=== PATIENT | female | born 1980 | race Caucasian/White ===

== ENCOUNTER 2017-12-18 13:09 | Emergency (ER) | payer OTHER, BC ==
[2017-12-18] MEDS ORDERED: Ketorolac 60 MG/2 ML SDV IM ONE (13:42)
--- NOTE | 2017-12-18 13:44 | EDM.PDOC ---
ED HPI GENERAL MEDICAL PROBLEM - General Chief Complaint: Back Pain or Injury Stated Complaint: LOWER BACK PAIN Time Seen by Provider: 12/18/17 13:44 Source of Information: Reports: Patient - History of Present Illness INITIAL COMMENTS - FREE TEXT/NARRATIVE: HISTORY AND PHYSICAL: History of present illness: Patient presents with low back pain 6 out of 10 radiating down the left leg for approximately 20 minutes, radiation has resolved now complains of pain to the left paraspinous muscles as well as centrally in no distress but certainly uncomfortable with sitting and standing patient is able to bend at the waist with her hands slightly above her knees to help support Patient was working intermittently, 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 Past medical history: As per history of present illness and as reviewed below otherwise noncontributory. Surgical history: As per history of present illness and as reviewed below otherwise noncontributory. Social history: No reported history of drug or alcohol abuse. Family history: As per history of present illness and as reviewed below otherwise noncontributory. Physical exam: HEENT: Atraumatic, normocephalic, pupils reactive, negative for conjunctival pallor or scleral icterus, mucous membranes moist, throat clear, neck supple, nontender, trachea midline. Lungs: Clear to auscultation, breath sounds equal bilaterally, chest nontender. Heart: S1S2, regular, negative for clicks, rubs, or JVD. Abdomen: Soft, nondistended, nontender. Negative for masses or hepatosplenomegaly. Negative for costovertebral tenderness. Pelvis: Stable nontender. Genitourinary: Deferred. Rectal: Deferred. Extremities: Atraumatic, negative for cords or calf pain. Neurovascular unremarkable. Neuro: Awake, alert, oriented. Cranial nerves II through XII unremarkable. Cerebellum unremarkable. Motor and sensory unremarkable throughout. Exam nonfocal. Footdrop or saddle anesthesia Diagnostics: []Lumbar spine Therapeutics: []Toradol 60 IM [place] Flexeril Rest ice Impression: Paraspinous muscle spasm lumbar []Low back pain Definitive disposition and diagnosis as appropriate pending reevaluation and review of above. - Related Data Allergies Allergy/AdvReac Type Severity Reaction Status Date / Time No Known Allergies Allergy Verified 05/17/17 14:39 MDT Home Meds: Home Meds Ondansetron [Zofran ODT] 4 mg PO Q6H PRN #15 tab.dis 05/16/17 [Rx] oxyCODONE HCl/Acetaminophen [Percocet 5-325 mg Tablet] 1 - 2 each PO Q6H PRN [History] Past Medical History HEENT History: Reports: None Cardiovascular History: Reports: None Respiratory History: Reports: None Gastrointestinal History: Reports: None Genitourinary History: Reports: Renal Calculus [employer] History: Reports: Musculoskeletal History: Reports: None Neurological History: Reports: Migraines Other Neuro History: has very frequent migranes if not taking medication Psychiatric History: Reports: Anxiety Endocrine/Metabolic History: Reports: Obesity/BMI 30+ Other Endocrine/Metabolic History: Last TSH check last year. Hematologic History: Reports: None Immunologic History: Reports: None Oncologic (Cancer) History: Reports: None Dermatologic History: Reports: None - Infectious Disease History Infectious Disease History: Reports: Chicken Pox - Past Surgical History Head Surgeries/Procedures: Reports: None HEENT Surgical History: Reports: Oral Surgery, Other (See Below) Musculoskeletal Surgical History: Reports: Other (See Below) Social & Family History - Family History Family Medical History: Noncontributory - Tobacco Use Smoking Status *Q: Current Every Day Smoker Years of Tobacco use: 15 Packs/Tins Daily: 0.5 Used Tobacco, but Quit: No Second Hand Smoke Exposure: Yes - Caffeine Use Caffeine Use: Reports: None - Recreational Drug Use Recreational Drug Use: No Drug Use in Last 12 Months: No ED ROS GENERAL - Review of Systems Review Of Systems: ROS reveals no pertinent complaints other than HPI. ED EXAM, GENERAL - Physical Exam Exam: See Below Course - Orders/Labs/Meds Meds: Medications Discontinued Medications Generic Name Dose Route Start Last Admin Trade Name Freq PRN Reason Stop Dose Admin Ketorolac Tromethamine 60 mg 12/18/17 13:42 12/18/17 13:53 Toradol IM 12/18/17 13:43 60 mg ONETIME ONE Administration Departure - Departure Time of Disposition: 14:33 Disposition: Home, Self-Care 01 Condition: Good Clinical Impression: Spasm of lumbar paraspinous muscle, Low back pain - Discharge Information Referrals: PCP,None [Primary Care Provider] - Forms: ED Department Discharge Additional Instructions: Medication as prescribed no need for ibuprofen or Tylenol with this medication No alcohol with the muscle relaxant Flexeril, no operation of heavy equipment or driving Ice 20 minute intervals 3 times daily as needed Return if symptoms persist or worsen Follow-up with primary care in 2 weeks [facility] [address] [place] [id number] The following information is given to patients seen in the emergency department who are being discharged to home. This information is to outline your options for follow-up care. We provide all patients seen in our emergency department with a follow-up referral. The need for follow-up, as well as the timing and circumstances, are variable depending upon the specifics of your emergency department visit. If you don't have a primary care physician on staff, we will provide you with a referral. We always advise you to contact your personal physician following an emergency department visit to inform them of the circumstance of the visit and for follow-up with them and/or the need for any referrals to a consulting specialist. The emergency department will also refer you to a specialist when appropriate. This referral assures that you have the opportunity for follow-up care with a specialist. All of these measure are taken in an effort to provide you with optimal care, which includes your follow-up. Under all circumstances we always encourage you to contact your private physician who remains a resource for coordinating your care. When calling for follow-up care, please make the office aware that this follow-up is from your recent emergency room visit. If for any reason you are refused follow-up, please contact the [facility] emergency department at and asked to speak to the emergency department charge nurse.
--- NOTE | 2017-12-18 14:27 | CR ---
EXAMINATION: Lumbar spine HISTORY: Pain COMPARISON: None TECHNIQUE: 3 views FINDINGS: Mild levoscoliosis of the lumbar spine is noted. The vertebral body heights and disc spaces appear maintained. Minimal marginal osteophytes. SI joints are symmetric. Bone mineralization is nor mal. IMPRESSION: 1. Mild degenerative changes without acute findings.
[2017-12-18 15:07] VITALS: BP 109/71
== END 2017-12-18 15:13 | disposition home or self-care (01) ==
LOC: MW.ED 13:09
DX: M62.830 Muscle spasm of back (principal); F17.210 Nicotine dependence, cigarettes, uncomplicated
CPT/HCPCS: 72100; 96372; 99283; J1885

== ENCOUNTER 2019-08-29 11:13 | Emergency (ER) | payer BC ==
--- NOTE | 2019-08-29 11:33 | EDM.PDOC ---
ED HPI GENERAL MEDICAL PROBLEM - General Chief Complaint: Lower Extremity Injury/Pain Stated Complaint: SAVAGE GTZ Time Seen by Provider: 08/29/19 11:20 Source of Information: Reports: Patient History Limitations: Reports: No Limitations - History of Present Illness INITIAL COMMENTS - FREE TEXT/NARRATIVE: History of present illness: []Patient was up and down a ladder several times yesterday and in the middle of the night started having right-sided ankle pain behind the medial malleolus. She does not have any swelling and does not recall any incident where she fell or twisted her foot or ankle. Review of systems: As per history of present illness and below otherwise all systems reviewed and negative. Past medical history: As per history of present illness and as reviewed below otherwise noncontributory. Surgical history: As per history of present illness and as reviewed below otherwise noncontributory. Social history: No reported history of drug or alcohol abuse. Family history: As per history of present illness and as reviewed below otherwise noncontributory. Physical exam: General: Well developed, well nourished in NAD HEENT: Atraumatic, normocephalic, pupils reactive, negative for conjunctival pallor or scleral icterus, mucous membranes moist, throat clear, neck supple, nontender, trachea midline. Lungs: Clear to auscultation, breath sounds equal bilaterally, chest nontender. Heart: S1S2, regular, negative for clicks, rubs, or JVD. Abdomen: NABS, Soft, nondistended, nontender. Negative for masses or hepatosplenomegaly. Negative for costovertebral tenderness. Pelvis: Stable nontender. Genitourinary: Deferred. Rectal: Deferred. Extremities: Atraumatic, no visible signs of external trauma or swelling, patient has tenderness posterior to the medial malleolus of the right ankle, no bony tenderness, tenderness with section and extension of her ankle. distal pulses are palpable moves toes and has brisk capillary refill negative for cords or calf pain. Neurovascular unremarkable. Neuro: Awake, alert, oriented. Cranial nerves II through XII unremarkable. Cerebellum unremarkable. Motor and sensory unremarkable throughout. Exam nonfocal. Skin:warm and dry Diagnostics: None Therapeutics: Air splint ED Course: Table Impression: Tendinitis right ankle Prescriptions: Diclofenac Plan: Elevate ankle as much as possible, Take meds as directed, follow up with your primary care physician, return to ER if symptoms worsen or change. Definitive disposition and diagnosis as appropriate pending reevaluation and review of above. RIGHT ANKLE Pain Score (Numeric/FACES): 7 - Related Data Allergies Allergy/AdvReac Type Severity Reaction Status Date / Time No Known Allergies Allergy Verified 08/29/19 11:25 Home Meds: Home Meds Diclofenac Sodium [Voltaren] 75 mg PO BIDMEALS PRN #20 tab.cr 08/29/19 [Rx] Past Medical History HEENT History: Reports: None Cardiovascular History: Reports: None Respiratory History: Reports: None Gastrointestinal History: Reports: None Genitourinary History: Reports: Renal Calculus [employer] P[employer]ING TECH History: Reports: Musculoskeletal History: Reports: None Neurological History: Reports: Migraines Other Neuro History: has very frequent migranes if not taking medication Psychiatric History: Reports: Anxiety Endocrine/Metabolic History: Reports: Obesity/BMI 30+ Other Endocrine/Metabolic History: Last TSH check last year. Hematologic History: Reports: None Immunologic History: Reports: None Oncologic (Cancer) History: Reports: None Dermatologic History: Reports: None - Infectious Disease History Infectious Disease History: Reports: Chicken Pox - Past Surgical History Head Surgeries/Procedures: Reports: None HEENT Surgical History: Reports: Oral Surgery, Other (See Below) Other HEENT Surgeries/Procedures: ear sx Female Surgical History: Reports: Hysterectomy Musculoskeletal Surgical History: Reports: Other (See Below) Social & Family History - Family History Family Medical History: Noncontributory - Tobacco Use Smoking Status *Q: Current Every Day Smoker Years of Tobacco use: 15 Packs/Tins Daily: 0.5 - Caffeine Use Caffeine Use: Reports: None - Recreational Drug Use Recreational Drug Use: No Review of Systems - Review of Systems Review Of Systems: See Below ED EXAM, GENERAL - Physical Exam Exam: See Below Course - Vital Signs Last Recorded V/S: Last Vital Signs Temp 96.9 F 08/29/19 11:24 Pulse 82 08/29/19 11:24 Resp BP 121/76 08/29/19 11:24 Pulse Ox 95 08/29/19 11:24 Departure - Departure Time of Disposition: 11:32 Disposition: Home, Self-Care 01 Condition: Good Clinical Impression: Right ankle tendonitis - Discharge Information *PRESCRIPTION DRUG MONITORING PROGRAM REVIEWED*: No *COPY OF PRESCRIPTION DRUG MONITORING REPORT IN PATIENT MICKEY: No Prescriptions: Diclofenac Sodium [Voltaren] 75 mg PO BIDMEALS PRN #20 tab.cr PRN Reason: Pain Referrals: PCP,None [Primary Care Provider] - Additional Instructions: The following information is given to patients seen in the emergency department who are being discharged to home. This information is to outline your options for follow-up care. We provide all patients seen in our emergency department with a follow-up referral. The need for follow-up, as well as the timing and circumstances, are variable depending upon the specifics of your emergency department visit. If you don't have a primary care physician on staff, we will provide you with a referral. We always advise you to contact your personal physician following an emergency department visit to inform them of the circumstance of the visit and for follow-up with them and/or the need for any referrals to a consulting specialist. The emergency department will also refer you to a specialist when appropriate. This referral assures that you have the opportunity for follow-up care with a specialist. All of these measure are taken in an effort to provide you with optimal care, which includes your follow-up. Under all circumstances we always encourage you to contact your private physician who remains a resource for coordinating your care. When calling for follow-up care, please make the office aware that this follow-up is from your recent emergency room visit. If for any reason you are refused follow-up, please contact the [facility] Emergency Department at and asked to speak to the emergency department charge nurse. Use ice as much as possible, wear splint for comfort, Take meds as directed, follow up with your primary care physician, return to ER if symptoms worsen or change. [facility] [address] [place] [id number]
[2019-08-29 11:57] VITALS: BP 109/71; PULSE 86
== END 2019-08-29 11:56 | disposition home or self-care (01) ==
LOC: MW.ED 11:13
DX: M77.51 Other enthesopathy of right foot and ankle (principal); F17.210 Nicotine dependence, cigarettes, uncomplicated; E66.9 Obesity, unspecified; Z68.32 Body mass index [BMI] 32.0-32.9, adult
CPT/HCPCS: 99283

== ENCOUNTER 2020-10-29 15:00 | Emergency (ER) | payer BC ==
[2020-10-29] MEDS ORDERED: Sodium Chloride 0.9% 10 ML Syringe FLUSH PRN (15:06)
[2020-10-29] MEDS ORDERED: Sodium Chloride 0.9% 2.5 ML Syringe FLUSH PRN (15:06)
[2020-10-29] MEDS ORDERED: Sodium Chloride 0.9% 10 ML SDV IV PRN (15:06)
--- NOTE | 2020-10-29 15:14 | EDM.PDOC ---
ED HPI GENERAL MEDICAL PROBLEM - General Stated Complaint: NUMB FACE Time Seen by Provider: 10/29/20 15:10 Source of Information: Reports: Patient History Limitations: Reports: No Limitations - History of Present Illness INITIAL COMMENTS - FREE TEXT/NARRATIVE: 40-year-old female with history of migraine presents with numbness and tingling to the left face and left upper extremity and blurry vision, last known well = 1 PM today. She started having the same symptoms last night at 8 PM and she went to sleep and woke up at 6 AM asymptomatic, she then went to work at [employer] and started feeling the same symptoms again 2 hours ago at 1 PM. She feels nauseous. She denies headache, abdominal pain, fever, chills, chest pain, shortness of breath, vomiting. She states that she has never had migraines that feel like this because she always has a headache with migraines. She denies having a headache today. ROS: A 10-point review of systems, other than pertinent positives and negatives as stated per HPI, is otherwise negative Past medical history: No additional pertinent history Past Surgical history: No additional pertinent history Social history: No additional pertinent history Family history: No additional pertinent history PHYSICAL EXAM General: AOx4, GCS = 15, No distress HEENT: dry mucous membrane Neck: supple, no meningismus, no Kernig or Brudzinski Cardiac: S1S2 RRR Respiratory: CTAB, no crackles or rales, no wheezing Abdomen: Soft, nontender, no rebound or guarding, nondistended, no pulsatile mass. Back: nontender Musculoskeletal: NVI distally, no deformity Neuro: NIHSS = 1, hypoesthesia to the left face and left upper extremity. 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 Hematologic History: Reports: None Immunologic History: Reports: None Oncologic (Cancer) History: Reports: None Dermatologic History: Reports: None - Infectious Disease History Infectious Disease History: Reports: Chicken Pox - Past Surgical History Head Surgeries/Procedures: Reports: None HEENT Surgical History: Reports: Oral Surgery, Other (See Below) Other HEENT Surgeries/Procedures: ear sx Female Surgical History: Reports: Hysterectomy Musculoskeletal Surgical History: Reports: Other (See Below) Social & Family History - Family History Family Medical History: No Pertinent Family History - Caffeine Use Caffeine Use: Reports: None ED ROS GENERAL - Review of Systems Review Of Systems: See Below (see dictation) ED EXAM, NEURO - Physical Exam Exam: See Below (see dictation) #1 Interpretation EKG Interpretation Comments: Heart rate = 49 bpm, sinus bradycardia, normal QRS interval, no STEMI. EKG and rhythm strip interpreted by me at 5430 Course - Vital Signs Last Recorded V/S: Last Vital Signs Temp 97.0 F 10/29/20 16:57 Pulse 83 10/29/20 16:57 Resp 16 10/29/20 16:57 BP 128/72 10/29/20 16:57 Pulse Ox 96 10/29/20 16:57 - Orders/Labs/Meds Orders: Active Orders 24 hr Category Date Time Status Assess Neurological Status [RC] CONTINUOUS Care 10/29/20 15:06 Active Blood Glucose Check, Bedside [RC] STAT Care 10/29/20 15:06 Active Cardiac Monitoring [RC] CONTINUOUS Care 10/29/20 15:06 Active Communication Order [RC] STAT Care 10/29/20 15:06 Active EKG 12 Lead [EKG Documentation Completion] [RC] STAT Care 10/29/20 16:35 Active Height and Weight [RC] UPON Care 10/29/20 15:06 Active NIH Stroke Scale [RC] Q15M Care 10/29/20 15:06 Active NIH Stroke Scale [RC] STAT Care 10/29/20 15:06 Active Nursing Bedside Swallow Screen [RC] STAT Care 10/29/20 15:06 Active Oxygen Therapy, ED [RC] ASDIRECTED Care 10/29/20 15:06 Active Vital Signs [RC] Q15M Care 10/29/20 15:06 Active Sodium Chloride 0.9% [Normal Saline] Med 10/29/20 15:06 Active 10 ml IV ASDIRECTED PRN Sodium Chloride 0.9% [Normal Saline] 500 ml Med 10/29/20 15:15 Active IV BOLUS Sodium Chloride 0.9% [Saline Flush] Med 10/29/20 15:06 Active 10 ml FLUSH ASDIRECTED PRN Sodium Chloride 0.9% [Saline Flush] Med 10/29/20 15:06 Active 2.5 ml FLUSH ASDIRECTED PRN Blood Pressure Mgmt:Acute Stroke [OM.PC] Urgent Oth 10/29/20 15:06 Ordered Peripheral IV Insertion Adult [OM.PC] Stat Oth 10/29/20 15:06 Ordered Peripheral IV Insertion Adult [OM.PC] Stat Oth 10/29/20 15:06 Ordered Resuscitation Status Stat Resus Stat 10/29/20 15:06 Ordered Medication Orders Sodium Chloride (Normal Saline) 500 mls @ 999 mls/hr IV BOLUS REMBERTO Last Admin: 10/29/20 16:02 Dose: 999 mls/hr Documented by: SLAT[place] Sodium Chloride (Saline Flush) 10 ml FLUSH ASDIRECTED PRN PRN Reason: Keep Vein Open Last Admin: 10/29/20 16:05 Dose: 10 ml Documented by: [place] Sodium Chloride (Saline Flush) 2.5 ml FLUSH ASDIRECTED PRN PRN Reason: Keep Vein Open Last Admin: 10/29/20 16:04 Dose: 2.5 ml Documented by: [place] Sodium Chloride (Normal Saline) 10 ml IV ASDIRECTED PRN PRN Reason: IV Use Labs: Laboratory Tests 10/29/20 10/29/20 10/29/20 Range/Units 15:06 15:06 15:06 WBC 7.71 (4.0-11.0) K/uL RBC 4.25 L (4.30-5.90) M/uL Hgb 13.3 (12.0-16.0) g/dL Hct 40.7 (36.0-46.0) % MCV 95.8 (80.0-98.0) fL MCH 31.3 (27.0-32.0) pg MCHC 32.7 (31.0-37.0) g/dL RDW Std Deviation 44.1 (28.0-62.0) fl RDW Coeff of Ivette 13 (11.0-15.0) % Plt Count 333 (150-400) K/uL MPV 9.60 (7.40-12.00) fL Neut % (Auto) 63.0 (48.0-80.0) % Lymph % (Auto) 27.1 (16.0-40.0) % Ocean % (Auto) 7.7 (0.0-15.0) % Eos % (Auto) 1.8 (0.0-7.0) % Baso % (Auto) 0.4 (0.0-1.5) % Neut # (Auto) 4.9 (1.4-5.7) K/uL Lymph # (Auto) 2.1 (0.6-2.4) K/uL Ocean # (Auto) 0.6 (0.0-0.8) K/uL Eos # (Auto) 0.1 (0.0-0.7) K/uL Baso # (Auto) 0.0 (0.0-0.1) K/uL Nucleated RBC % 0.0 /100WBC Nucleated RBCs # 0 K/uL INR 0.99 APTT 25.7 (18.6-31.3) SEC Sodium 141 (136-145) mmol/L Potassium 3.7 (3.5-5.1) mmol/L Chloride 107 (98-107) mmol/L Carbon Dioxide 22.2 (21.0-32.0) mmol/L BUN 9 (7.0-18.0) mg/dL Creatinine 0.8 (0.6-1.0) mg/dL Est Cr Clr Drug Dosing TNP Estimated GFR (MDRD) > 60.0 ml/min Glucose 91 (74-106) mg/dL Calcium 8.7 (8.5-10.1) mg/dL Total Bilirubin 0.7 (0.2-1.0) mg/dL AST 12 L (15-37) IU/L ALT 18 (14-63) IU/L Alkaline Phosphatase 73 (46-116) U/L Troponin I < 0.050 (0.000-0.056) ng/mL Total Protein 7.5 (6.4-8.2) g/dL Albumin 3.9 (3.4-5.0) g/dL Globulin 3.6 (2.6-4.0) g/dL Albumin/Globulin Ratio 1.1 (0.9-1.6) SARS-CoV-2 RNA (MANISH) (NEGATIVE) 10/29/20 Range/Units 15:08 WBC (4.0-11.0) K/uL RBC (4.30-5.90) M/uL Hgb (12.0-16.0) g/dL Hct (36.0-46.0) % MCV (80.0-98.0) fL MCH (27.0-32.0) pg MCHC (31.0-37.0) g/dL RDW Std Deviation (28.0-62.0) fl RDW Coeff of Ivette (11.0-15.0) % Plt Count (150-400) K/uL MPV (7.40-12.00) fL Neut % (Auto) (48.0-80.0) % Lymph % (Auto) (16.0-40.0) % Ocean % (Auto) (0.0-15.0) % Eos % (Auto) (0.0-7.0) % Baso % (Auto) (0.0-1.5) % Neut # (Auto) (1.4-5.7) K/uL Lymph # (Auto) (0.6-2.4) K/uL Ocean # (Auto) (0.0-0.8) K/uL Eos # (Auto) (0.0-0.7) K/uL Baso # (Auto) (0.0-0.1) K/uL Nucleated RBC % /100WBC Nucleated RBCs # K/uL INR APTT (18.6-31.3) SEC Sodium (136-145) mmol/L Potassium (3.5-5.1) mmol/L Chloride (98-107) mmol/L Carbon Dioxide (21.0-32.0) mmol/L BUN (7.0-18.0) mg/dL Creatinine (0.6-1.0) mg/dL Est Cr Clr Drug Dosing Estimated GFR (MDRD) ml/min Glucose (74-106) mg/dL Calcium (8.5-10.1) mg/dL Total Bilirubin (0.2-1.0) mg/dL AST (15-37) IU/L ALT (14-63) IU/L Alkaline Phosphatase (46-116) U/L Troponin I (0.000-0.056) ng/mL Total Protein (6.4-8.2) g/dL Albumin (3.4-5.0) g/dL Globulin (2.6-4.0) g/dL Albumin/Globulin Ratio (0.9-1.6) SARS-CoV-2 RNA (MANISH) NEGATIVE (NEGATIVE) Meds: Medications Generic Name Dose Route Start Last Admin Trade Name Freq PRN Reason Stop Dose Admin Sodium Chloride 500 mls @ 999 mls/hr 10/29/20 15:15 10/29/20 16:02 Normal Saline IV 999 mls/hr BOLUS REMBERTO Administration Sodium Chloride 10 ml 10/29/20 15:06 10/29/20 16:05 Saline Flush FLUSH 10 ml ASDIRECTED PRN Administration Keep Vein Open Sodium Chloride 2.5 ml 10/29/20 15:06 10/29/20 16:04 Saline Flush FLUSH 2.5 ml ASDIRECTED PRN Administration Keep Vein Open Sodium Chloride 10 ml 10/29/20 15:06 Normal Saline IV ASDIRECTED PRN IV Use Discontinued Medications Generic Name Dose Route Start Last Admin Trade Name Freq PRN Reason Stop Dose Admin Aspirin 81 mg 10/29/20 16:44 Halfprin PO 10/29/20 16:45 ONETIME ONE Aspirin 81 mg 10/29/20 16:56 Aspirin PO 10/29/20 16:57 ONETIME ONE - Re-Assessments/Exams Free Text/Narrative Re-Assessment/Exam: 10/29/20 16:[address] Guillermina Stearns (neurology), given her NIHSS = 1, Dr. Stearns will see her tomorrow in the clinic at 1:30 PM. Patient is agreeable with plan. She is given ASA 81 mg PO. 10/29/201708 She exhibits normal vital signs and has a normal gait on road test. I advised the patient to return to the ER for reevaluation if symptoms worsened, including fever, worsening pain, or any other worrisome symptoms. I instructed the patient to follow up with Dr. Stearns tomorrow at 1:30pm MEDICAL DECISION MAKING: I reviewed the patients past medical records, lab and radiographic findings. I discussed the case with the patient. My differential diagnosis included: TIA, CVA, migraine. Patient's NIHSS = 1 with no functional deficit. Case was discussed with neurology Dr. Guillermina Stearns, who establish a follow-up appointment to see the patient tomorrow at 1:30 PM. Patient is agreeable with plan. Departure - Departure Time of Disposition: 17:09 Disposition: Home, Self-Care 01 Condition: Good Clinical Impression: Numbness - Discharge Information *PRESCRIPTION DRUG MONITORING PROGRAM REVIEWED*: Not Applicable *COPY OF PRESCRIPTION DRUG MONITORING REPORT IN PATIENT MICKEY: Not Applicable Instructions: Paresthesia Referrals: Guillermina Stearns MD [Physician] - 10/30/20 1:30 pm Forms: ED Department Discharge Additional Instructions: The need for follow-up, as well as the timing and circumstances, are variable depending upon the specifics of your emergency department visit. If you don't have a primary care physician on staff, we will provide you with a referral. We always advise you to contact your personal physician following an emergency department visit to inform them of the circumstance of the visit and for follow-up with them and/or the need for any referrals to a consulting specialist. The emergency department will also refer you to a specialist when appropriate. This referral assures that you have the opportunity for follow-up care with a specialist. All of these measure are taken in an effort to provide you with optimal care, which includes your follow-up. Under all circumstances we always encourage you to contact your private physician who remains a resource for coordinating your care. When calling for follow-up care, please make the office aware that this follow-up is from your recent emergency room visit. If for any reason you are refused follow-up, please contact the [facility] Emergency Department at and asked to speak to the emergency department charge nurse. An appointment has been made for you tomorrow at 1:[address] Guillermina Stearns [facility] - Neurology Professional Building [address] [place] [address], [address] [place] [address] Sepsis Event Note (ED) - Focused Exam Vital Signs: Vital Signs Temp Pulse Resp BP Pulse Ox 10/29/20 16:57 97.0 F 83 16 128/72 96 - My Orders Last 24 Hours: My Active Orders 10/29/20 15:06 Assess Neurological Status [RC] CONTINUOUS Blood Glucose Check, Bedside [RC] STAT Cardiac Monitoring [RC] CONTINUOUS Communication Order [RC] STAT Height and Weight [RC] UPON NIH Stroke Scale [RC] Q15M NIH Stroke Scale [RC] STAT Nursing Bedside Swallow Screen [RC] STAT Oxygen Therapy, ED [RC] ASDIRECTED Vital Signs [RC] Q15M Sodium Chloride 0.9% [Normal Saline] 10 ml IV ASDIRECTED PRN Sodium Chloride 0.9% [Saline Flush] 10 ml FLUSH ASDIRECTED PRN Sodium Chloride 0.9% [Saline Flush] 2.5 ml FLUSH ASDIRECTED PRN Blood Pressure Mgmt:Acute Stroke [OM.PC] Urgent Peripheral IV Insertion Adult [OM.PC] Stat Peripheral IV Insertion Adult [OM.PC] Stat Resuscitation Status Stat 10/29/20 15:15 Sodium Chloride 0.9% [Normal Saline] 500 ml IV BOLUS 10/29/20 16:35 EKG 12 Lead [EKG Documentation Completion] [RC] STAT - Assessment/Plan Last 24 Hours: My Active Orders 10/29/20 15:06 Assess Neurological Status [RC] CONTINUOUS Blood Glucose Check, Bedside [RC] STAT Cardiac Monitoring [RC] CONTINUOUS Communication Order [RC] STAT Height and Weight [RC] UPON NIH Stroke Scale [RC] Q15M NIH Stroke Scale [RC] STAT Nursing Bedside Swallow Screen [RC] STAT Oxygen Therapy, ED [RC] ASDIRECTED Vital Signs [RC] Q15M Sodium Chloride 0.9% [Normal Saline] 10 ml IV ASDIRECTED PRN Sodium Chloride 0.9% [Saline Flush] 10 ml FLUSH ASDIRECTED PRN Sodium Chloride 0.9% [Saline Flush] 2.5 ml FLUSH ASDIRECTED PRN Blood Pressure Mgmt:Acute Stroke [OM.PC] Urgent Peripheral IV Insertion Adult [OM.PC] Stat Peripheral IV Insertion Adult [OM.PC] Stat Resuscitation Status Stat 10/29/20 15:15 Sodium Chloride 0.9% [Normal Saline] 500 ml IV BOLUS 10/29/20 16:35 EKG 12 Lead [EKG Documentation Completion] [RC] STAT
[2020-10-29] MEDS ORDERED: Sodium Chloride 0.9% 500 ML IV SCH (15:15)
--- NOTE | 2020-10-29 15:32 | CT ---
INDICATION: Left-sided facial numbness and left upper extremity weakness. COMPARISON: None available TECHNIQUE: CT examination of the head was performed with 3 mm thick axial, sagittal, and coronal sections without intravenous contrast. Images were obtained from the vertex of the skull through the skull base, and I examined the images with the brain and bone windows. Please note that all CT scans at this facility use dose modulation, iterative reconstruction, and/or weight-based dosing when appropriate to reduce radiation dose to as low as reasonably achievable. FINDINGS: The brain is normal in appearance for the patient`s age on today`s study, with no sign of mass lesion, mass effect, hemorrhage, or edema. The ventricles and sulci are normal in appearance for the patient`s age. The visualized portions of the orbits are normal in appearance. The visualized paranasal sinuses and mastoids are clear. The osseous structures are normal in their appearance with no sign of abnormality in the skull base or calvarium. IMPRESSION: Normal noncontrast CT of the head for the patient`s age. Please note that all CT scans at this facility use dose modulation, iterative reconstruction, and/or weight-based dosing when appropriate to reduce radiation dose to as low as reasonably achievable. Dictated by Ronan Choe MD @ Oct 29 2020 3:30PM Signed by Dr. Ronan Choe @ Oct 29 2020 3:32PM
[2020-10-29 15:43] LABS: BLOOD UREA NITROGEN,BUN 9 mg/dL (7.0-18.0); CARBON DIOXIDE,CO2 22.2 mmol/L (21.0-32.0); CHLORIDE,CL 107 mmol/L (98-107); GLUCOSE RANDOM 91 mg/dL (74-106); POTASSIUM,K 3.7 mmol/L (3.5-5.1); SODIUM,NA 141 mmol/L (136-145)
--- NOTE | 2020-10-29 16:04 | CT ---
INDICATION: Acute stroke. TECHNIQUE: After standard noncontrast head CT, high resolution axial CT images acquired through the head and neck following rapid intravenous administration of iodinated contrast. Multiplanar MIPS of cranial and cervical vasculature performed. COMPARISON: None. FINDINGS: Noncontrast head CT: There is no intracranial hemorrhage or fluid collection. The [place]ana-white matter differentiation is maintained. The ventricles are of normal morphology. The basal cisterns are clear. CTA head: There is normal filling of the intracranial vasculature; i.e. there is no large vessel occlusion or intracranial stenosis. There is no cerebral aneurysm or evidence for vascular malformation. A right posterior communicating artery infundibulum is incidentally noted. CTA neck: Both carotid and vertebral arteries have a normal course and caliber. There is no stenosis or evidence for dissection. A 1 centimeter indeterminate hypodense right thyroid nodule is incidentally noted. The cervical spine is in normal alignment. The lung apices are clear. IMPRESSION: No large vessel occlusion. No acute intracranial abnormality at CT/CTA. No carotid or vertebral artery stenosis or dissection. Weston Crowe MD Neurointerventional Radiologist [facility] Please note that all CT scans at this facility use dose modulation, iterative reconstruction, and/or weight-based dosing when appropriate to reduce radiation dose to as low as reasonably achievable. Dictated by Weston Crowe MD @ Oct 29 2020 3:43PM Signed by Dr. Weston Crowe @ Oct 29 2020 4:03PM
--- NOTE | 2020-10-29 16:41 | CR ---
Indication: Stroke Comparison: None available. Technique: Single AP view chest Findings: Mild interstitial prominence is appreciated. There is no focal consolidation, effusion, or pneumothorax. The cardiac silhouette is within normal limits. The bony thorax is grossly intact. Impression: There is mild interstitial prominence without dense consolidation. Dictated by Jaycob Graham MD @ Oct 29 2020 4:06PM Signed by Dr. Jaycob Graham @ Oct 29 2020 4:40PM
[2020-10-29] MEDS ORDERED: Aspirin 81 MG Tab.EC PO ONE (16:44)
[2020-10-29] MEDS ORDERED: Aspirin 81 MG Tab.Chew PO ONE (16:56)
[2020-10-29 18:47] VITALS: BP 104/70; PULSE 59
== END 2020-10-29 17:23 | disposition home or self-care (01) ==
LOC: MW.ED 15:00
DX: R20.0 Anesthesia of skin (principal); R20.2 Paresthesia of skin; R00.1 Bradycardia, unspecified; E66.9 Obesity, unspecified; Z20.828 Contact with and (suspected) exposure to other viral communicable diseases
CPT/HCPCS: 36415; 70450; 70496; 70498; 71045; 80053; 84484; 85025; 85610; 85730; 87635; 93005; 99285; A9270; J7040; U0002

== ENCOUNTER 2021-05-22 18:51 | Emergency (ER) | payer OTHER, BC ==
[2021-05-22 20:09] VITALS: BP 130/91; PULSE 94
--- NOTE | 2021-05-22 20:21 | EDM.PDOC ---
ED HPI GENERAL MEDICAL PROBLEM - General Chief Complaint: Upper Extremity Injury/Pain Stated Complaint: IMPACTED RIGHT HAND AT WORK Time Seen by Provider: 05/22/21 20:20 Source of Information: Reports: Patient History Limitations: Reports: No Limitations - History of Present Illness INITIAL COMMENTS - FREE TEXT/NARRATIVE: HISTORY AND PHYSICAL: History of present illness: Patient is a 41-year-old female who presents to the emergency room with complaints of a crush injury to her right hand that occurred at 10 AM this morning. She denies any other extremity involvement. Has taken ibuprofen for the pain but states she continues to have a moderate amount of discomfort. Patient denies any fever, chills, headache, change in vision, syncope or near syncope. Denies any cardiac, respiratory, GI or symptoms. Review of systems: As per history of present illness and below otherwise all systems reviewed and negative. Past medical history: As per history of present illness and as reviewed below otherwise noncontributory. Surgical history: As per history of present illness and as reviewed below otherwise noncontributory. Social history: See social history for further information Family history: As per history of present illness and as reviewed below otherwise noncontributory. Physical exam: General: Well developed and well nourished. Alert and orientated x 3. Nontoxic in appearance and in no acute distress. Vital signs are stable and have been reviewed by me. Nursing notes were reviewed. HEENT: Atraumatic, normocephalic, pupils equal and reactive bilaterally, negative for conjunctival pallor or scleral icterus, mucous membranes moist, TMs normal bilaterally, throat clear, neck supple, nontender, trachea midline. No drooling or trismus noted. No meningeal signs. No hot potato voice noted. Lungs: Clear to auscultation bilaterally. No wheezes, rales, or rhonchi. Chest nontender. Normal work of breathing, no accessory muscles used. Heart: S1S2, regular rate and rhythm without overt murmur, gallops, or rubs. No JVD. No peripheral edema Abdomen: Soft, nondistended, nontender. Skin: Soft tissue swelling and bruising of the proximal second and third knuckle. Remaining skin is intact, warm, dry. No lesions or rashes noted. Hematologic: No petechiae or purpra. Mucosa appropriate color and normal nail bed color and refill. Extremities: Crush injury of the right hand. Tenderness with palpation of the second and third proximal knuckle on right hand. She moves all extremities per self without difficulty or deficits. Strong radial pulse. Cap refill less than 3 seconds. Neurovascular unremarkable. Neuro: Awake, alert, oriented. Cranial nerves II through XII unremarkable. Cerebellum unremarkable. Motor and sensory unremarkable throughout. Exam nonfocal. Psychiatric: Mood and affect are appropriate. Normal thought process. Answering questions appropriately. Notes: *This patient was seen and evaluated during the 2019 SARS-CoV-2 novel coronavirus pandemic period. Community viral transmission is ongoing at time of this encounter and the emergency department is operating under pandemic response procedures. Patient is a 41-year-old female who presents to the emergency room with complaints of a crush injury to her right hand. She does have a moderate amount of swelling to the proximal second knuckle with tenderness to palpation. She is agreeable for x-ray. X-ray shows no visualized fracture. Alignments anatomic. Joint spaces unremarkable. Fiberglass splint applied due to patient having an allergy to neoprene/synthetic materials. We will have her wear this for comfort purposes over the next 3 to 5 days. I have talked with the patient about today's findings, in addition to providing specific details for plan of care. Reassessment at the time of disposition demonstrates that the patient is in no acute distress. The patient is stable for discharge, counseling was provided and we discussed in great detail signs and symptoms that would prompt them to return to the Emergency Department. Medication, follow up and supportive care measures were reviewed and discussed. Voices understanding and is agreeable to plan of care. Denies any further questions or concerns at this time. Diagnostics: Hand x-ray Therapeutics: Fiberglass splint Prescription: [place] (#20) Impression: Crush injury Plan: 1. You were evaluated today on an emergent basis. Your x-ray is normal. Rest, ice, elevate the extremity as able. Wear the splint over the next few days for comfort purposes. 2. You can alternate Tylenol and ibuprofen as needed for pain and fever management. 3. We encourage you to follow up with your orthopedics and/or hand surgeon in the next few days for re-evaluation and further care/management. 4. If your symptoms should worsen, new symptoms develop or any of the signs and symptoms we discussed should arise please return to the emergency room or call 911 (if needed). Definitive disposition and diagnosis as appropriate pending reevaluation and review of above. right hand Pain Score (Numeric/FACES): 7 - Related Data Allergies Allergy/AdvReac Type Severity Reaction Status Date / Time No Known Allergies Allergy Verified 05/22/21 20:04 Home Meds: Home Meds Diclofenac Sodium [Voltaren] 75 mg PO BIDMEALS PRN #20 tab.cr 08/29/19 [Rx] Amitriptyline [Elavil] 10 mg PO BEDTIME 05/22/21 [History] Clindamycin Phos/Benzoyl Perox [Clindamycin-Benzoyl Perox 1-5%] 1 gm TOP DAILY 05/22/21 [History] Clobetasol [Clobetasol Propionate 0.05% Cream] 1 gm TOP DAILY 05/22/21 [History] Hydrocodone/Acetaminophen [Hydrocodone-Acetamin 5-325 mg] 1 tab PO Q4HR PRN #20 tablet 05/22/21 [Rx] Minocycline [Minocin] 100 mg PO DAILY 05/22/21 [History] Spironolactone [Aldactone] 100 mg PO DAILY 05/22/21 [History] Tretinoin/Emollient Base [Tretinoin 0.05% Emollient Crm] 1 gm TOP DAILY 05/22/21 [History] Past Medical History HEENT History: Reports: None Cardiovascular History: Reports: None Respiratory History: Reports: None Gastrointestinal History: Reports: None Genitourinary History: Reports: Renal Calculus 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 Hematologic History: Reports: None Immunologic History: Reports: None Oncologic (Cancer) History: Reports: None Dermatologic History: Reports: None - Infectious Disease History Infectious Disease History: Reports: Chicken Pox - Past Surgical History Head Surgeries/Procedures: Reports: None HEENT Surgical History: Reports: Oral Surgery, Other (See Below) Other HEENT Surgeries/Procedures: ear sx Cardiovascular Surgical History: Reports: None Respiratory Surgical History: Reports: None GI Surgical History: Reports: None Female Surgical History: Reports: Hysterectomy Endocrine Surgical History: Reports: None Neurological Surgical History: Reports: None Musculoskeletal Surgical History: Reports: Other (See Below) Other Musculoskeletal Surgeries/Procedures:: I&D lower back abscess under local anesthesia. foot surgery Oncologic Surgical History: Reports: None Dermatological Surgical History: Reports: None Social & Family History - Family History Family Medical History: No Pertinent Family History - Tobacco Use Tobacco Use Status *Q: Current Every Day Tobacco User Years of Tobacco use: 20 Packs/Tins Daily: 0.5 - Caffeine Use Caffeine Use: Reports: Coffee - Recreational Drug Use Recreational Drug Use: No Review of Systems - Review of Systems Review Of Systems: Comprehensive ROS is negative, except as noted in HPI. ED EXAM, GENERAL - Physical Exam Exam: See Below (See dictation) Course - Vital Signs Last Recorded V/S: Last Vital Signs Temp 96.9 F 05/22/21 20:06 Pulse 94 05/22/21 20:06 Resp 18 05/22/21 20:06 BP 130/91 H 05/22/21 20:06 Pulse Ox 98 05/22/21 20:06 - Orders/Labs/Meds Orders: Active Orders 24 hr Category Date Time Status DME for Discharge [COMM] Stat Oth 05/22/21 20:40 Ordered Departure - Departure Time of Disposition: 20:47 Disposition: Home, Self-Care 01 Clinical Impression: Crush injury - Discharge Information Prescriptions: Hydrocodone/Acetaminophen [Hydrocodone-Acetamin 5-325 mg] 1 tab PO Q4HR PRN #20 tablet PRN Reason: Pain (Severe 7-10) Instructions: Crush Injury of the Hand, [id number] Referrals: PCP,None [Primary Care Provider] - Forms: ED Department Discharge Additional Instructions: The following information is given to patients seen in the emergency department who are being discharged to home. This information is to outline your options for follow-up care. We provide all patients seen in our emergency department with a follow-up referral. The need for follow-up, as well as the timing and circumstances, are variable depending upon the specifics of your emergency department visit. If you don't have a primary care physician on staff, we will provide you with a referral. We always advise you to contact your personal physician following an emergency department visit to inform them of the circumstance of the visit and for follow-up with them and/or the need for any referrals to a consulting specialist. The emergency department will also refer you to a specialist when appropriate. This referral assures that you have the opportunity for follow-up care with a specialist. All of these measure are taken in an effort to provide you with optimal care, which includes your follow-up. Under all circumstances we always encourage you to contact your private physician who remains a resource for coordinating your care. When calling for follow-up care, please make the office aware that this follow-up is from your recent emergency room visit. If for any reason you are refused follow-up, please contact the [facility] Emergency Department at and asked to speak to the emergency department charge nurse. [facility] [address] [place] [id number] [place] [address] Thank you for choosing the [facility] emergency department in [place] for your medical needs today. It was a pleasure caring for you. Today you were seen in the emergency department for hand injury. 1. You were evaluated today on an emergent basis. Your x-ray is normal. Rest, ice, elevate the extremity as able. Wear the splint over the next few days for comfort purposes. 2. You can alternate Tylenol and ibuprofen as needed for pain and fever management. 3. We encourage you to follow up with your orthopedics and/or hand surgeon in the next few days for re-evaluation and further care/management. 4. If your symptoms should worsen, new symptoms develop or any of the signs and symptoms we discussed should arise please return to the emergency room or call 911 (if needed). Sepsis Event Note (ED) - Evaluation Sepsis Screening Result: No Definite Risk - Focused Exam Vital Signs: Vital Signs Temp Pulse Resp BP Pulse Ox 05/22/21 20:06 96.9 F 94 18 130/91 H 98 - My Orders Last 24 Hours: My Active Orders 05/22/21 20:40 DME for Discharge [COMM] Stat - Assessment/Plan Last 24 Hours: My Active Orders 05/22/21 20:40 DME for Discharge [COMM] Stat
--- NOTE | 2021-05-22 20:42 | CR ---
3 VIEWS right hand INDICATION: Injury. IMPRESSION: No visualized fracture. Alignments anatomic. Joint spaces unremarkable. Dictated by Juan Burdick MD @ 05/22/2021 8:41:[address] Juan Burdick @ May 22 2021 8:41PM
== END 2021-05-22 20:59 | disposition home or self-care (01) ==
LOC: MW.ED 18:51
DX: S67.21XA Crushing injury of right hand, initial encounter (principal); E66.9 Obesity, unspecified; Z68.31 Body mass index [BMI] 31.0-31.9, adult; W23.0XXA Caught, crushed, jammed, or pinched between moving objects, initial encounter; Y99.0 Civilian activity done for income or pay
CPT/HCPCS: 29125; 73130-26-RT; 73130-RT; 99283-25

== ENCOUNTER 2021-10-08 08:27 | Observation (INO) | payer BC ==
[2021-10-08 09:45] LABS: HEMOGLOBIN A1C 5.7 %
[2021-10-08 10:25] LABS: BLOOD UREA NITROGEN,BUN 24 mg/dL (7.0-18.0); CARBON DIOXIDE,CO2 22.2 mmol/L (21.0-32.0); CHLORIDE,CL 108 mmol/L (98-107); GLUCOSE RANDOM 89 mg/dL (74-106); POTASSIUM,K 4.5 mmol/L (3.5-5.1); SODIUM,NA 143 mmol/L (136-145)
--- NOTE | 2021-10-08 13:03 | CT ---
Indication: Left lower quadrant pain, tenderness Technique: Volumetric multidetector CT images of the abdomen and pelvis were without the administration of intravenous contrast. Comparison: None available. Findings: There is bibasilar atelectasis and/or parenchymal scar. The liver is normal in attenuation without intrahepatic biliary ductal dilatation. The gallbladder is unremarkable without evidence of radiopaque calculus. There is no significant common biliary ductal dilatation or abrupt cut off. The spleen is normal in attenuation and size. The stomach and duodenum are grossly unremarkable. The pancreas is normal in attenuation without significant atrophy. The adrenal glands are unremarkable. There is right-sided hydronephrosis and hydroureter without evidence of definite distal obstructing calculus. There is moderate stool seen throughout the colon with minimal distal colonic diverticulosis without evidence of diverticulitis. The appendix is unremarkable. There is no significant mesenteric, retroperitoneal, or pelvic sidewall lymph nodes. The aorta is nonaneurysmal. There is no significant atherosclerotic disease appreciated. The solid pelvic viscera are grossly unremarkable. There is no free fluid or free air. There is a small fat containing umbilical hernia. The lumbar vertebral body heights are grossly maintained with mild degenerative disc disease. Impression: Right-sided hydronephrosis and hydroureter without evidence of definite obstructing calculus. Moderate stool within the proximal colon with a decompressed appearing distal colon with trace colonic diverticulosis. No overt pericolonic inflammatory changes are appreciated. Please note that all CT scans at this facility use dose modulation, iterative reconstruction, and/or weight-based dosing when appropriate to reduce radiation dose to as low as reasonably achievable. Dictated by Jaycob Graham MD @ 10/08/2021 1:02:34 PM (Electronically Signed)
--- NOTE | 2021-10-08 17:19 | PCM.HP.2 ---
H&P History of Present Illness - General Date of Service: 10/08/21 Admit Problem/Dx: Admission Diagnosis/Problem Admission Diagnosis/Problem Acute kidney injury - History of Present Illness Initial Comments - Free Text/Narative: 41 yo female with pmh of kidney stones who presents several day history of left flank pain. The pain starts at the left CVA and wraps down into the left inguina area. She denies any pain with urination. She has note notice passing any stones. Last week patient had cough, and fevers. She was treated with torodol, 2 doses of ibuprofen and Z-pack. The last few days she has been drinking several gallons of water and her urine has been clear. She was seen in clinic today and noted to have a creatine of 1.9. CT scan reported right hydronephrosis with out any significant blockage. 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 Hematologic History: Reports: None Immunologic History: Reports: None Oncologic (Cancer) History: Reports: None Dermatologic History: Reports: None - Infectious Disease History Infectious Disease History: Reports: Chicken Pox - Past Surgical History Head Surgeries/Procedures: Reports: None HEENT Surgical History: Reports: Oral Surgery, Other (See Below) Other HEENT Surgeries/Procedures: ear sx Cardiovascular Surgical History: Reports: None Respiratory Surgical History: Reports: None GI Surgical History: Reports: None Female Surgical History: Reports: Hysterectomy Endocrine Surgical History: Reports: None Neurological Surgical History: Reports: None Musculoskeletal Surgical History: Reports: Other (See Below) Other Musculoskeletal Surgeries/Procedures:: I&D lower back abscess under local anesthesia. foot surgery Oncologic Surgical History: Reports: None Dermatological Surgical History: Reports: None Social & Family History - Family History Family Medical History: No Pertinent Family History - Tobacco Use Tobacco Use Status *Q: Current Every Day Tobacco User Years of Tobacco use: 20 Packs/Tins Daily: 0.5 - Caffeine Use Caffeine Use: Reports: Coffee, Energy Drinks, Soda, Tea Other Caffeine Use: 2 per day - Recreational Drug Use Recreational Drug Use: No H&P Review of Systems - Review of Systems: Review Of Systems: Comprehensive ROS is negative, except as noted in HPI. Exam - Exam Exam: See Below - Vital Signs Vital Signs: Last Vital Signs Temp 36.2 C 10/08/21 15:04 Pulse 79 10/08/21 15:04 Resp 17 10/08/21 15:04 BP 126/74 10/08/21 15:04 Pulse Ox 97 10/08/21 15:04 Weight: 86.545 kg - Exam General: Alert, Oriented HEENT: Mucosa Moist & [place] Neck: Supple Lungs: Clear to Auscultation, Normal Respiratory Effort Cardiovascular: Regular Rate, Regular Rhythm GI/Abdominal Exam: Normal Bowel Sounds, Soft, Non-Tender Extremities: Non-Tender, No Pedal Edema Skin: Warm, Dry, Intact Neurological: Cranial Nerves Intact - Patient Data Lab Results Last 24 hrs: Laboratory Results - last 24 hr 10/08/21 10/08/21 10/08/21 Range/Units 09:15 09:15 09:15 WBC (4.0-11.0) K/uL RBC (4.30-5.90) M/uL Hgb (12.0-16.0) g/dL Hct (36.0-46.0) % MCV (80.0-98.0) fL MCH (27.0-32.0) pg MCHC (31.0-37.0) g/dL RDW Std Deviation (28.0-62.0) fl RDW Coeff of [place] (11.0-15.0) % Plt Count (150-400) K/uL MPV (7.40-12.00) fL Neut % (Auto) (48.0-80.0) % Lymph % (Auto) (16.0-40.0) % [place] % (Auto) (0.0-15.0) % Eos % (Auto) (0.0-7.0) % Baso % (Auto) (0.0-1.5) % Neut # (Auto) (1.4-5.7) K/uL Lymph # (Auto) (0.6-2.4) K/uL [place] # (Auto) (0.0-0.8) K/uL Eos # (Auto) (0.0-0.7) K/uL Baso # (Auto) (0.0-0.1) K/uL Nucleated RBC % /100WBC Nucleated RBCs # K/uL ESR 39 H (0-19) mm/hr Sodium 143 (136-145) mmol/L Potassium 4.5 (3.5-5.1) mmol/L Chloride 108 H (98-107) mmol/L Carbon Dioxide 22.2 (21.0-32.0) mmol/L BUN 24 H (7.0-18.0) mg/dL Creatinine 1.9 H (0.6-1.0) mg/dL Est Cr Clr Drug Dosing TNP Estimated GFR (MDRD) 29.4 ml/min Glucose 89 (74-106) mg/dL Hemoglobin A1c 5.7 (4.5 - 6.2) % Calcium 8.9 (8.5-10.1) mg/dL Total Bilirubin 0.9 (0.2-1.0) mg/dL AST 11 L (15-37) IU/L ALT 11 L (14-63) IU/L Alkaline Phosphatase 70 (46-116) U/L Total Protein 7.4 (6.4-8.2) g/dL Albumin 3.5 (3.4-5.0) g/dL Globulin 3.9 (2.6-4.0) g/dL Albumin/Globulin Ratio 0.9 (0.9-1.6) Urine Color Urine Appearance Urine pH (5.0-8.0) Ur Specific [place] (1.001-1.035) Urine Protein (NEGATIVE) mg/dL Urine Glucose (UA) (NEGATIVE) mg/dL Urine Ketones (NEGATIVE) mg/dL Urine Occult Blood (NEGATIVE) Urine Nitrite (NEGATIVE) Urine Bilirubin (NEGATIVE) Urine Urobilinogen (<2.0) EU/dL Ur Leukocyte Esterase (NEGATIVE) Urine RBC (0-2/HPF) Urine WBC (0-5/HPF) Ur Epithelial Cells (NONE-FEW) Urine Bacteria (NEGATIVE) SARS-CoV-2 RNA (MANISH) (NEGATIVE) 10/08/21 10/08/21 10/08/21 Range/Units 09:15 09:15 15:40 WBC 6.56 (4.0-11.0) K/uL RBC 4.05 L (4.30-5.90) M/uL Hgb 12.9 (12.0-16.0) g/dL Hct 37.7 (36.0-46.0) % MCV 93.1 (80.0-98.0) fL MCH 31.9 (27.0-32.0) pg MCHC 34.2 (31.0-37.0) g/dL RDW Std Deviation 42.4 (28.0-62.0) fl RDW Coeff of Ivette 12 (11.0-15.0) % Plt Count 298 (150-400) K/uL MPV 9.50 (7.40-12.00) fL Neut % (Auto) 70.5 (48.0-80.0) % Lymph % (Auto) 17.5 (16.0-40.0) % [place] % (Auto) 9.6 (0.0-15.0) % Eos % (Auto) 2.1 (0.0-7.0) % Baso % (Auto) 0.3 (0.0-1.5) % Neut # (Auto) 4.6 (1.4-5.7) K/uL Lymph # (Auto) 1.2 (0.6-2.4) K/uL [place] # (Auto) 0.6 (0.0-0.8) K/uL Eos # (Auto) 0.1 (0.0-0.7) K/uL Baso # (Auto) 0.0 (0.0-0.1) K/uL Nucleated RBC % 0.0 /100WBC Nucleated RBCs # 0 K/uL ESR (0-19) mm/hr Sodium (136-145) mmol/L Potassium (3.5-5.1) mmol/L Chloride (98-107) mmol/L Carbon Dioxide (21.0-32.0) mmol/L BUN (7.0-18.0) mg/dL Creatinine (0.6-1.0) mg/dL Est Cr Clr Drug Dosing Estimated GFR (MDRD) ml/min Glucose (74-106) mg/dL Hemoglobin A1c (4.5 - 6.2) % Calcium (8.5-10.1) mg/dL Total Bilirubin (0.2-1.0) mg/dL AST (15-37) IU/L ALT (14-63) IU/L Alkaline Phosphatase (46-116) U/L Total Protein (6.4-8.2) g/dL Albumin (3.4-5.0) g/dL Globulin (2.6-4.0) g/dL Albumin/Globulin Ratio (0.9-1.6) Urine Color STRAW Urine Appearance CLEAR Urine pH 5.5 (5.0-8.0) Ur Specific [place] 1.010 (1.001-1.035) Urine Protein NEGATIVE (NEGATIVE) mg/dL Urine Glucose (UA) NEGATIVE (NEGATIVE) mg/dL Urine Ketones NEGATIVE (NEGATIVE) mg/dL Urine Occult Blood TRACE-LYSED H (NEGATIVE) Urine Nitrite NEGATIVE (NEGATIVE) Urine Bilirubin NEGATIVE (NEGATIVE) Urine Urobilinogen 0.2 (<2.0) EU/dL Ur Leukocyte Esterase NEGATIVE (NEGATIVE) Urine RBC 0-1 (0-2/HPF) Urine WBC 0-1 (0-5/HPF) Ur Epithelial Cells RARE (NONE-FEW) Urine Bacteria NOT SEEN (NEGATIVE) SARS-CoV-2 RNA (MANISH) NEGATIVE (NEGATIVE) Result Diagrams: 10/10/21 05:49 10/10/21 05:49 Sepsis Event Note - Evaluation Sepsis Screening Result: No Definite Risk - Focused Exam Vital Signs: Vital Signs Temp Pulse Resp BP Pulse Ox 10/08/21 15:04 36.2 C 79 17 126/74 97 Problem List Initiated/Reviewed/Updated: Yes Orders Last 24hrs: Active Orders 24 hr Category Date Time Status Patient Status [ADT] Routine ADT 10/08/21 15:45 Active Antiembolic Devices [RC] PER UNIT ROUTINE Care 10/08/21 15:46 Active VTE/DVT Education [RC] PER UNIT ROUTINE Care 10/08/21 15:45 Active Vital Signs [RC] Q4H Care 10/08/21 15:45 Active Regular Diet [DIET] Diet 10/08/21 Breakfast Active Chest 2V [CR] Routine Exams 10/08/21 Ordered BASIC METABOLIC PANEL,BMP [CHEM] AM Lab 10/09/21 05:11 Ordered CBC W/O DIFF,HEMOGRAM [HEME] AM Lab 10/09/21 05:11 Ordered Sodium Chloride 0.9% [Normal Saline] 1,000 ml Med 10/08/21 15:45 Active IV ASDIRECTED Sequential Compression Device [OM.PC] Per Unit Routine Oth 10/08/21 15:45 Ordered Resuscitation Status Routine Resus Stat 10/08/21 15:45 Ordered Medication Orders Sodium Chloride (Normal Saline) 1,000 mls @ 125 mls/hr IV ASDIRECTED REMBERTO Assessment/Plan Comment:: 41 yo female admitted for acute kidney injury and flank pain Acute kidney injury: may be due to dehydration with what was likely a viral URTI, on the differential is ATN and nephrotoxic medications of NSAID flank pain: possible musculoskeletal, differential include passed kidney stone hydronephrosis: may be due to polydipsia
[2021-10-08] MEDS: Sodium Chloride 0.9% 1,000 ML IV SCH (17:21)
[2021-10-08] MEDS: traMADol 50 MG Tab PO PRN (17:33)
[2021-10-08] MEDS: Acetaminophen 325 MG Tab PO PRN (22:05)
[2021-10-09] MEDS: traMADol 50 MG Tab PO PRN ×3 (00:07→14:27)
[2021-10-09] MEDS: Sodium Chloride 0.9% 1,000 ML IV SCH ×3 (00:08→18:12)
[2021-10-09 08:02] LABS: CARBON DIOXIDE,CO2 23.1 mmol/L (21.0-32.0); POTASSIUM,K 3.7 mmol/L (3.5-5.1)
[2021-10-09] MEDS: Acetaminophen 325 MG Tab PO PRN (12:18)
--- NOTE | 2021-10-09 12:52 | PCM.PN ---
- General Info Date of Service: 10/09/21 - Review of Systems Systems Review Comment:: reports flank pain - Patient Data Vitals - Most Recent: Last Vital Signs Temp 36.0 C L 10/09/21 12:00 Pulse 44 L 10/09/21 12:00 Resp 20 10/09/21 12:00 BP 131/73 10/09/21 12:00 Pulse Ox 96 10/09/21 12:00 Weight - Most Recent: 86.545 kg I&O - Last 24 Hours: Intake & Output 10/08/21 10/09/21 10/09/21 22:59 06:59 14:59 Intake Total 1200 Output Total 1950 Balance -750 Lab Results Last 24 Hours: Laboratory Results - last 24 hr 10/08/21 10/08/21 10/09/21 Range/Units 15:40 17:30 05:45 WBC 6.35 (4.0-11.0) K/uL RBC 3.66 L (4.30-5.90) M/uL Hgb 11.5 L (12.0-16.0) g/dL Hct 34.6 L (36.0-46.0) % MCV 94.5 (80.0-98.0) fL MCH 31.4 (27.0-32.0) pg MCHC 33.2 (31.0-37.0) g/dL RDW Std Deviation 43.3 (28.0-62.0) fl RDW Coeff of Ivette 13 (11.0-15.0) % Plt Count 235 (150-400) K/uL MPV 10.20 (7.40-12.00) fL Nucleated RBC % 0.0 /100WBC Nucleated RBCs # 0 K/uL Sodium (136-145) mmol/L Potassium (3.5-5.1) mmol/L Chloride (98-107) mmol/L Carbon Dioxide (21.0-32.0) mmol/L BUN (7.0-18.0) mg/dL Creatinine (0.6-1.0) mg/dL Est Cr Clr Drug Dosing mL/min Estimated GFR (MDRD) ml/min Glucose (74-106) mg/dL Calcium (8.5-10.1) mg/dL Ur Random Creatinine 39.6 mg/dL Ur Random Sodium 48.0 (40.0-220.0) mmol/L SARS-CoV-2 RNA (MANISH) NEGATIVE (NEGATIVE) 10/09/21 Range/Units 05:45 WBC (4.0-11.0) K/uL RBC (4.30-5.90) M/uL Hgb (12.0-16.0) g/dL Hct (36.0-46.0) % MCV (80.0-98.0) fL MCH (27.0-32.0) pg MCHC (31.0-37.0) g/dL RDW Std Deviation (28.0-62.0) fl RDW Coeff of Ivette (11.0-15.0) % Plt Count (150-400) K/uL MPV (7.40-12.00) fL Nucleated RBC % /100WBC Nucleated RBCs # K/uL Sodium 142 (136-145) mmol/L Potassium 3.7 (3.5-5.1) mmol/L Chloride 110 H (98-107) mmol/L Carbon Dioxide 23.1 (21.0-32.0) mmol/L BUN 17 (7.0-18.0) mg/dL Creatinine 1.5 H (0.6-1.0) mg/dL Est Cr Clr Drug Dosing 48.97 mL/min Estimated GFR (MDRD) 38.7 ml/min Glucose 89 (74-106) mg/dL Calcium 8.4 L (8.5-10.1) mg/dL Ur Random Creatinine mg/dL Ur Random Sodium (40.0-220.0) mmol/L SARS-CoV-2 RNA (MANISH) (NEGATIVE) Med Orders - Current: Current Medications Acetaminophen (Acetaminophen 325 Mg Tab) 650 mg PO Q6H PRN PRN Reason: Pain Last Admin: 10/09/21 12:18 Dose: 650 mg Documented by: Sodium Chloride (Normal Saline) 1,000 mls @ 125 mls/hr IV ASDIRECTED REMBERTO Last Admin: 10/09/21 08:06 Dose: 125 mls/hr Documented by: Tramadol HCl (Tramadol 50 Mg Tab) 50 mg PO Q6H PRN PRN Reason: Pain Last Admin: 10/09/21 08:05 Dose: 50 mg Documented by: - Exam General: Alert, Oriented Neck: Supple Lungs: Clear to Auscultation, Normal Respiratory Effort Cardiovascular: Regular Rate, Regular Rhythm GI/Abdominal Exam: Soft, Non-Tender, No Distention Back Exam: No: CVA Tenderness (L), CVA Tenderness (R) Extremities: Non-Tender, No Pedal Edema Skin: Warm, Dry, Intact Neurological: No New Focal Deficit - Patient Data Lab Results Last 24 hrs: Laboratory Results - last 24 hr 10/08/21 10/08/21 10/09/21 Range/Units 15:40 17:30 05:45 WBC 6.35 (4.0-11.0) K/uL RBC 3.66 L (4.30-5.90) M/uL Hgb 11.5 L (12.0-16.0) g/dL Hct 34.6 L (36.0-46.0) % MCV 94.5 (80.0-98.0) fL MCH 31.4 (27.0-32.0) pg MCHC 33.2 (31.0-37.0) g/dL RDW Std Deviation 43.3 (28.0-62.0) fl RDW Coeff of Ivette 13 (11.0-15.0) % Plt Count 235 (150-400) K/uL MPV 10.20 (7.40-12.00) fL Nucleated RBC % 0.0 /100WBC Nucleated RBCs # 0 K/uL Sodium (136-145) mmol/L Potassium (3.5-5.1) mmol/L Chloride (98-107) mmol/L Carbon Dioxide (21.0-32.0) mmol/L BUN (7.0-18.0) mg/dL Creatinine (0.6-1.0) mg/dL Est Cr Clr Drug Dosing mL/min Estimated GFR (MDRD) ml/min Glucose (74-106) mg/dL Calcium (8.5-10.1) mg/dL Ur Random Creatinine 39.6 mg/dL Ur Random Sodium 48.0 (40.0-220.0) mmol/L SARS-CoV-2 RNA (MANISH) NEGATIVE (NEGATIVE) 10/09/21 Range/Units 05:45 WBC (4.0-11.0) K/uL RBC (4.30-5.90) M/uL Hgb (12.0-16.0) g/dL Hct (36.0-46.0) % MCV (80.0-98.0) fL MCH (27.0-32.0) pg MCHC (31.0-37.0) g/dL RDW Std Deviation (28.0-62.0) fl RDW Coeff of Ivette (11.0-15.0) % Plt Count (150-400) K/uL MPV (7.40-12.00) fL Nucleated RBC % /100WBC Nucleated RBCs # K/uL Sodium 142 (136-145) mmol/L Potassium 3.7 (3.5-5.1) mmol/L Chloride 110 H (98-107) mmol/L Carbon Dioxide 23.1 (21.0-32.0) mmol/L BUN 17 (7.0-18.0) mg/dL Creatinine 1.5 H (0.6-1.0) mg/dL Est Cr Clr Drug Dosing 48.97 mL/min Estimated GFR (MDRD) 38.7 ml/min Glucose 89 (74-106) mg/dL Calcium 8.4 L (8.5-10.1) mg/dL Ur Random Creatinine mg/dL Ur Random Sodium (40.0-220.0) mmol/L SARS-CoV-2 RNA (MANISH) (NEGATIVE) Result Diagrams: 10/09/21 05:45 10/09/21 05:45 Sepsis Event Note - Evaluation Sepsis Screening Result: No Definite Risk - Focused Exam Vital Signs: Vital Signs Temp Pulse Resp BP Pulse Ox 10/09/21 12:00 36.0 C L 44 L 20 131/73 96 10/09/21 08:00 35.7 C L 57 L 20 125/68 98 10/09/21 03:31 35.8 C L 55 L 17 96/55 L 97 - Problem List Review Problem List Initiated/Reviewed/Updated: Yes - My Orders Last 24 Hours: My Active Orders 10/08/21 15:45 Patient Status [ADT] Routine VTE/DVT Education [RC] PER UNIT ROUTINE Vital Signs [RC] Q4H Sodium Chloride 0.9% [Normal Saline] 1,000 ml IV ASDIRECTED Sequential Compression Device [OM.PC] Per Unit Routine Resuscitation Status Routine 10/08/21 15:46 Antiembolic Devices [RC] PER UNIT ROUTINE 10/08/21 17:19 Acetaminophen [TylenoL] 650 mg PO Q6H PRN traMADol [Ultram] 50 mg PO Q6H PRN 10/09/21 12:46 GLYCOSYLATED HEMOGLOBIN,HGBA1C [CHEM] Routine OSMOLALITY - SERUM [REF] Routine OSMOLALITY - URINE Routine 10/09/21 12:47 Head wo Cont [CT] Routine - Plan Plan:: 41 yo female admitted for acute kidney injury and flank pain Acute kidney injury: may be due to dehydration with what was likely a viral URTI, on the differential is ATN and nephrotoxic medications of NSAID flank pain: possible musculoskeletal, differential include passed kidney stone. Creainine has improved to 1.5 with fluids, will check urine osmolality and observe one more night hydronephrosis: may be due to polydipsia
[2021-10-09 13:06] LABS: HEMOGLOBIN A1C 5.8 %
--- NOTE | 2021-10-09 14:48 | CT ---
INDICATION: Headache TECHNIQUE: CT head without contrast. COMPARISON: None FINDINGS: CSF spaces: Within normal limits for age. Brain parenchyma: The [place]-white differentiation is normal. No sign of mass, hemorrhage, or midline shift. Skull base and calvarium: The visualized paranasal sinuses and mastoid air cells demonstrate no acute or significant findings. The visualized orbits are grossly unremarkable. No skull fractures. IMPRESSION: Unremarkable noncontrast head CT. Please note that all CT scans at this facility use dose modulation, iterative reconstruction, and/or weight-based dosing when appropriate to reduce radiation dose to as low as reasonably achievable. Dictated by Casa Ahumada MD @ 10/09/2021 2:46:51 PM (Electronically Signed)
[2021-10-10] MEDS: traMADol 50 MG Tab PO PRN ×2 (01:17→08:41)
[2021-10-10] MEDS: Sodium Chloride 0.9% 1,000 ML IV SCH ×2 (01:18→09:53)
[2021-10-10 08:13] LABS: CARBON DIOXIDE,CO2 22.4 mmol/L (21.0-32.0); POTASSIUM,K 4.2 mmol/L (3.5-5.1)
[2021-10-10 11:56] VITALS: PULSE 46
--- NOTE | 2021-10-10 15:05 | PCM.DCSUM1 ---
Discharge Summary - Discharge Data Discharge Date: 10/10/21 Discharge Disposition: Home, Self-Care 01 Condition: Good - Referral to Home Health Primary Care Physician: GLENNY Alvarado - Patient Summary/Data Hospital Course: 41 yo female with pmh of kidney stones who presents several day history of left flank pain. The pain starts at the left CVA and wraps down into the left inguina area. She denies any pain with urination. She has not noticed passing any stones. Last week patient had cough, and fevers. She was treated with torodol, 2 doses of ibuprofen and Z-pack. She has been extremly thirsty and has been drinking several gallons of water and her urine has been clear. She was seen in clinic by Ana María Alexander and noted to have a creatine of 1.9. CT scan reported right hydronephrosis with out any significant blockage. She was then referred for direct admission. She was treated with IV fluids of Normal saline and her Creatine improved to 1.3. In the past 24 hours she has urinated 7000 ml with 2 L of IV fluids and 5 L of oral intake. I suspect patient may have diabetes insipidus. Patient is ready for discharge today. I spoke with Ana María Alexander and will arrange for 24 hour urine collection to further evaluate patients polyuria. A referral to nephrology was also made. - Patient Instructions Diet: Regular Diet as Tolerated Activity: As Tolerated Other/Special Instructions: Start collecting 24 hr urine collection Thursday and return urine to lab on Thursday. Follow up with Ana María Alexander on Thursday. Report any symptoms of lightheadedness, dizziness, or confusion. - Discharge Plan Patient Handouts: Acute Kidney Injury, Adult, Diabetes Insipidus, 24-Hour Urine Collection Referrals: Ana María Alexander PA [Primary Care Provider] - 10/15/21 3:45 pm - Discharge Summary/Plan Comment DC Time >30 min.: Yes Total # of Minutes for Discharge Time: 35 - Patient Data Vitals - Most Recent: Last Vital Signs Temp 36.2 C 10/10/21 11:55 Pulse 46 L 10/10/21 11:55 Resp 20 10/10/21 11:55 BP 152/78 H 10/10/21 11:55 Pulse Ox 97 10/10/21 11:55 Weight - Most Recent: 86.545 kg I&O - Last 24 hours: Intake & Output 10/09/21 10/10/21 10/10/21 22:59 06:59 14:59 Intake Total 5055 2300 Output Total 3355 3650 Balance 1705 -1350 Lab Results - Last 24 hrs: Laboratory Results - last 24 hr 10/09/21 10/10/21 10/10/21 Range/Units 05:45 05:49 05:49 WBC 6.41 (4.0-11.0) K/uL RBC 3.54 L (4.30-5.90) M/uL Hgb 11.1 L (12.0-16.0) g/dL Hct 33.5 L (36.0-46.0) % MCV 94.6 (80.0-98.0) fL MCH 31.4 (27.0-32.0) pg MCHC 33.1 (31.0-37.0) g/dL RDW Std Deviation 42.8 (28.0-62.0) fl RDW Coeff of Ivette 12 (11.0-15.0) % Plt Count 249 (150-400) K/uL MPV 10.40 (7.40-12.00) fL Neut % (Auto) 59.3 (48.0-80.0) % Lymph % (Auto) 27.5 (16.0-40.0) % [place] % (Auto) 10.9 (0.0-15.0) % Eos % (Auto) 2.0 (0.0-7.0) % Baso % (Auto) 0.3 (0.0-1.5) % Neut # (Auto) 3.8 (1.4-5.7) K/uL Lymph # (Auto) 1.8 (0.6-2.4) K/uL [place] # (Auto) 0.7 (0.0-0.8) K/uL Eos # (Auto) 0.1 (0.0-0.7) K/uL Baso # (Auto) 0.0 (0.0-0.1) K/uL Nucleated RBC % 0.0 /100WBC Nucleated RBCs # 0 K/uL Sodium 143 (136-145) mmol/L Potassium 4.2 (3.5-5.1) mmol/L Chloride 110 H (98-107) mmol/L Carbon Dioxide 22.4 (21.0-32.0) mmol/L BUN 18 (7.0-18.0) mg/dL Creatinine 1.3 H (0.6-1.0) mg/dL Est Cr Clr Drug Dosing 56.50 mL/min Estimated GFR (MDRD) 45.6 ml/min Glucose 77 (74-106) mg/dL Serum Osmolality 301 H (275-295) mosm/kg Calcium 8.1 L (8.5-10.1) mg/dL Med Orders - Current: Current Medications Acetaminophen (Acetaminophen 325 Mg Tab) 650 mg PO Q6H PRN PRN Reason: Pain Last Admin: 10/09/21 12:18 Dose: 650 mg Documented by: Tramadol HCl (Tramadol 50 Mg Tab) 50 mg PO Q6H PRN PRN Reason: Pain Last Admin: 10/10/21 08:41 Dose: 50 mg Documented by: Discontinued Medications Sodium Chloride (Normal Saline) 1,000 mls @ 125 mls/hr IV ASDIRECTED [facility] Last Admin: 10/10/21 09:53 Dose: 125 mls/hr Documented by:
[2021-10-10 19:34] VITALS: BP 140/78
== END 2021-10-10 17:30 | disposition home or self-care (01) ==
LOC: MW.CHFP 08:27 → MW.MS 14:15
PROVIDERS: ADMIT Internal Medicine; ATTEND Internal Medicine
DX: R10.9 Unspecified abdominal pain (principal); N17.9 Acute kidney failure, unspecified; E66.9 Obesity, unspecified; F17.210 Nicotine dependence, cigarettes, uncomplicated; E86.0 Dehydration; N13.30 Unspecified hydronephrosis; Z98.890 Other specified postprocedural states; Z20.822 Contact with and (suspected) exposure to COVID-19; Z68.29 Body mass index [BMI] 29.0-29.9, adult
CPT/HCPCS: 36415; 70450; 74176; 80048; 80053; 81001; 82570; 83036; 83930; 83935; 84300; 85025; 85027; 85652; 87635; A9270; G0378; J7030; U0002

== ENCOUNTER 2022-01-10 18:17 | Emergency (ER) | payer OTHER, BC ==
[2022-01-10] MEDS ORDERED: Ondansetron 4 MG/2 ML SDV IVPUSH ONE (18:29)
[2022-01-10] MEDS ORDERED: Sodium Chloride 0.9% 10 ML Syringe FLUSH PRN (18:29)
[2022-01-10] MEDS ORDERED: Sodium Chloride 0.9% 2.5 ML Syringe FLUSH PRN (18:29)
[2022-01-10] MEDS ORDERED: Morphine 4 MG/ML VIAL IVPUSH ONE (18:29)
[2022-01-10 19:04] LABS: BLOOD UREA NITROGEN,BUN 13 mg/dL (7.0-18.0); CHLORIDE,CL 104 mmol/L (98-107); GLUCOSE RANDOM 103 mg/dL (74-106); POTASSIUM,K 3.8 mmol/L (3.5-5.1); SODIUM,NA 140 mmol/L (136-145)
[2022-01-10] MEDS ORDERED: traMADol 50 MG Tab PO ONE (19:31)
[2022-01-10 19:43] VITALS: BP 98/60; PULSE 62
== END 2022-01-10 19:47 | disposition home or self-care (01) ==
LOC: MW.ED 18:17
DX: S09.90XA Unspecified injury of head, initial encounter (principal); E66.9 Obesity, unspecified; Z68.27 Body mass index [BMI] 27.0-27.9, adult; W22.09XA Striking against other stationary object, initial encounter
CPT/HCPCS: 36415; 70450; 72125; 80053; 84703; 85025; 85610; 85730; 96374; 96375; 99284; A9270; J2270; J2405

== ENCOUNTER 2022-12-07 20:59 | Emergency (ER) | payer BC ==
[2022-12-07 21:29] VITALS: PULSE 92
[2022-12-07] MEDS ORDERED: Albuterol/Ipratropium 3.0-0.5 MG/3 ML Neb Soln NEB STA (21:36)
[2022-12-07] MEDS ORDERED: Morphine 2 MG/ML SYRINGE IVPUSH STA (21:39)
[2022-12-07 21:50] LABS: CORONAVIRUS COVID-19 NAA POSITIVE (NEGATIVE); INFLUENZA A NAA NEGATIVE (NEGATIVE); INFLUENZA B NAA NEGATIVE (NEGATIVE)
[2022-12-07 22:03] LABS: POTASSIUM,K 3.4 mmol/L (3.5-5.1)
[2022-12-07 22:48] VITALS: BP 117/59
== END 2022-12-07 22:45 | disposition home or self-care (01) ==
LOC: MW.ED 20:59
DX: U07.1 COVID-19 (principal); E66.9 Obesity, unspecified; Z68.32 Body mass index [BMI] 32.0-32.9, adult
CPT/HCPCS: 0240U; 36415; 71045; 80053; 83735; 84484; 85025; 93005; 96374; 99285; J2270; J7620-GY

== ENCOUNTER 2023-04-28 13:05 | Emergency (ER) | payer BC ==
[2023-04-28] MEDS ORDERED: Ketorolac 60 MG/2 ML SDV IM ONE (14:57)
[2023-04-28 15:34] VITALS: BP 111/67; PULSE 50
== END 2023-04-28 15:33 | disposition home or self-care (01) ==
LOC: MW.ED 13:05
DX: S99.921A Unspecified injury of right foot, initial encounter (principal); E66.9 Obesity, unspecified; Z68.31 Body mass index [BMI] 31.0-31.9, adult; W22.8XXA Striking against or struck by other objects, initial encounter
CPT/HCPCS: 73620; 96372; 99283; J1885